=== PATIENT | male | born 1985 | race Caucasian/White ===

== ENCOUNTER 2019-12-25 13:38 | Emergency (ER) | payer OTHER ==
[2019-12-25] MEDS ORDERED: Adacel (T-DAP) 0.5 ML SYRINGE ONE (13:56)
[2019-12-25] MEDS ORDERED: Lidocaine 4% Cream 5 GM TUBE w/ Tegaderm ONE (13:56)
[2019-12-25] MEDS ORDERED: Bacitracin 1 PK ONE (15:00)
== END 2019-12-25 15:00 | disposition home or self-care (01) ==
LOC: NAV ERS 13:38
DX: S01.81XA Laceration without foreign body of other part of head, initial encounter (principal); Z23 Encounter for immunization; W22.8XXA Striking against or struck by other objects, initial encounter; Y92.149 Unspecified place in prison as the place of occurrence of the external cause
CPT/HCPCS: 12011; 90471; 90715

== ENCOUNTER 2020-03-16 09:47 | Emergency (ER) | payer OTHER ==
--- NOTE | 2020-03-16 10:40 | RAD ---
Exam:3 views right hand HISTORY: Injury to the third digit. COMPARISON: None FINDINGS: Soft tissue injury involving the tuft of the third digit. No radiopaque foreign body. No fr acture, cortical irregularity or periosteal reaction. IMPRESSION: Soft tissue injury, without evidence of radiopaque foreign body or fracture.
[2020-03-16] MEDS ORDERED: Lidocaine 1% (PF) 30 ML VIAL ONE (10:48)
[2020-03-16] MEDS ORDERED: Bacitracin 1 PK ONE (11:20)
== END 2020-03-16 11:41 | disposition still patient (30) ==
LOC: NAV ERS 09:47
DX: S61.210A Laceration without foreign body of right index finger without damage to nail, initial encounter (principal); S61.212A Laceration without foreign body of right middle finger without damage to nail, initial encounter; S60.041A Contusion of right ring finger without damage to nail, initial encounter; I10 Essential (primary) hypertension; W20.8XXA Other cause of strike by thrown, projected or falling object, initial encounter
CPT/HCPCS: 12002; J2001

== ENCOUNTER 2020-06-12 00:04 | Emergency (ER) | payer OTHER ==
[2020-06-12] MEDS ORDERED: methylPREDNISolone Sod Succ/PF 125 MG/2 ML VIAL ONE (00:32)
== END 2020-06-12 01:35 ==
LOC: NAV ERS 00:04
DX: U07.1 COVID-19 (principal); I10 Essential (primary) hypertension
CPT/HCPCS: 96374; J2930